=== PATIENT | male | born 1975 | race Caucasian/White ===

== ENCOUNTER → 2018-06-05 17:25 | Outpatient (CLI) | payer OTHER, MEDICAID, SELFPAY ==
--- NOTE | 2018-06-05 17:28 | DI.RAD.S_ITS ---
PROCEDURE: XR SHOULDER LT MIN 2V INDICATIONS: left shoulder pain TECHNIQUE: 3 views of the shoulder were acquired. COMPARISON: None. FINDINGS: Bones: No fractures or dislocations. No suspicious bony lesions. Visualized ribs appear intact. Soft tissues: No suspicious soft tissue calcifications. IMPRESSION: Left shoulder without acute radiographic abnormalities. Dictated by: Flavio Cochran M.D. on 06/05/2018 at 17:52 Approved by: Flavio Cochran M.D. on 06/05/2018 at 17:52
== END ==
PROVIDERS: Visit Provider Physician Assistant
DX: M25.512 Pain in left shoulder (principal)
CPT/HCPCS: 73030

== ENCOUNTER 2018-08-23 18:41 | Observation (INO) | payer OTHER, MEDICAID, SELFPAY ==
[2018-08-23] VITALS (11 sets, daily range): BP systolic 113–157; BP diastolic 68–96; PULSE 72–95; RESP 13–95; TEMP 36.1–36.9; O2SAT 95–99; BMI 23.6
--- NOTE | 2018-08-23 18:48 | DI.RAD.S_ITS ---
PROCEDURE: XR FINGER LT MIN 2V INDICATIONS: chopped off thumb TECHNIQUE: AP hand, 2 views of the left first finger(s) acquired. COMPARISON: None. FINDINGS: Bones: Distal aspect of the first distal phalange as indicated. Soft tissues: No suspicious soft tissue calcifications. No radiodense foreign bodies. IMPRESSION: Partial amputation of the first distal phalange. Dictated by: Catrachita Benjamin MD, PhD on 08/23/2018 at 19:22 Approved by: Catrachita Benjamin MD, PhD on 08/23/2018 at 19:22
--- NOTE | 2018-08-23 18:53 | ED.UPPEXIN ---
HPI - Extremity Injury (Upper) General Chief Complaint: Extremity Injury, Lower Stated Complaint: THUMB INJURY IN A LOCK SPLITTER Time Seen by Provider: 08/23/18 18:46 Source: patient Mode of arrival: ambulatory Limitations: no limitations History of Present Illness HPI narrative: Patient is a 42-year-old male presents with amputation of left thumb. It was cut off with a hydraulic log splitter 2-1/2 hours prior to arrival. No longer bleeding. He is kept on ice. It appears to be cut off just above the IP joint. He is left-hand dominant. There is a right-handed lever he was using his left hand to just a piece of wood when it got caught. He is unsure when his last tetanus MD complaint: injury to: left Other injuries: none Related Data Previous Rx's Medication Instructions Recorded methocarbamol 500 mg tablet 500 mg PO QID PRN #10 tab 06/06/18 cephalexin [Keflex] 500 mg PO QID #28 cap 08/23/18 hydrocodone-acetaminophen [[place]] 1 tab PO Q4HR PRN #10 tab 08/23/18 Allergies Allergy/AdvReac Type Severity Reaction Status Date / Time No Known Drug Allergies Allergy Unverified 06/05/18 15:53 Review of Systems Review of Systems GENERAL: Denies chills,fever HEENT: Denies throat pain RESPIRATORY: Denies dyspnea, cough, wheezing CARDIOVASCULAR: Denies chest pain, palpitations GASTROINTESTINAL: Denies nausea, vomiting MUSCULOSKELETAL: See HPI SKIN: No rash, no laceration, no pruritus NEUROLOGIC: Denies weakness, dizziness, headache, numbness 8 point review of systems is negative except for those stated above and HPI PFSH Social History Smoking Status: Current every day smoker Social History household members: none Smoking Status: Current every day smoker alcohol intake: current Exam Initial Vital Signs Initial Vital Signs: Vital Signs Temperature 98.5 F 08/23/18 18:54 Pulse Rate 89 08/23/18 18:54 Respiratory Rate 20 08/23/18 18:54 Blood Pressure 157/96 H 08/23/18 18:54 Pulse Oximetry 98 08/23/18 18:54 GENERAL: Well-appearing, well-nourished and in no acute distress. CARDIOVASCULAR: peripheral pulses in tact, cap refill <2 sec RESPIRATORY: No respiratory distress, speaks in full sentences without difficulty [ABDOMEN: Soft, nontender, no guarding or rebound] EXTREMITIES: Normal range of motion, no clubbing or edema. Neurovascularly intact NEUROLOGICAL: Cranial nerves II through XII grossly intact. Normal gait and speech. SKIN: Warm, dry, no petechiae, no rashes or lesions. Course Orders Ordered: ED Orders 08/23/18 18:48 XR finger LT min 2V Stat Hydrocodone Bitart/Acetaminophen ([place] 5/325) 1 tab PO Q4HR PRN PRN Reason: Pain, Mild (1-3) Last Admin: 08/23/18 23:36 Dose: 1 tab Hydrocodone Bitart/Acetaminophen ([place] 5/325) 2 tab PO Q4HR PRN PRN Reason: Pain, Moderate (4-6) Docusate Sodium (Colace) 100 mg PO BID [facility] Last Admin: 08/23/18 23:58 Dose: Not Given Lactated Ringer's (Lactated Ringers) 1,000 mls @ 125 mls/hr IV CONT [facility] Last Admin: 08/23/18 23:32 Dose: 125 mls/hr Cefazolin Sodium/Dextrose (Ancef) 1 gm in 50 mls @ 200 mls/hr IV Q8HR [facility] Stop: 08/24/18 14:14 Lorazepam (Ativan) 0.5 mg PO Q6HR PRN PRN Reason: Anxiety Metoclopramide HCl (Reglan) 10 mg IV Q6HR PRN PRN Reason: Nausea And Vomiting Naloxone HCl (Narcan) 0.2 mg IV Q2MIN PRN PRN Reason: Opiate Reversal Nicotine (Nicoderm) 14 mg TOP DAILY [facility] Last Admin: 08/24/18 00:19 Dose: 14 mg Ondansetron HCl (Zofran) 4 mg IV Q4HR PRN PRN Reason: Nausea And Vomiting Discontinued Medications Bupivacaine HCl (Sensorcaine 0.5% (Pf)) 30 ml INJ NOW ONE Stop: 08/23/18 21:09 Last Admin: 08/23/18 21:13 Dose: 7 ml Cefazolin Sodium (Ancef Vial) 1 gm IV NOW ONE Stop: 08/23/18 18:49 Last Admin: 08/23/18 19:28 Dose: Not Given Sodium Chloride 1,000 ml/ (Gentamicin Sulfate 80 mg) 0 ml IRR NOW ONE Stop: 08/23/18 21:09 Last Admin: 08/23/18 21:11 Dose: 2,004 ml Diphtheria/Tetanus/Acell Pertussis (Adacel) 0.5 ml IM .ONCE ONE Stop: 08/23/18 19:29 Last Admin: 08/23/18 19:29 Dose: 0.5 ml Fentanyl (Sublimaze) 50 mcg IV Q5MIN PRN PRN Reason: Pain, Moderate (4-6) Hydromorphone HCl (Dilaudid) 1 mg IV NOW ONE Stop: 08/23/18 18:49 Last Admin: 08/23/18 18:56 Dose: 1 mg Hydromorphone HCl (Dilaudid) 0.25 mg IV Q5MIN PRN PRN Reason: Pain, Mild (1-3) Cefazolin Sodium/Dextrose (Ancef) 1 gm in 50 mls @ 200 mls/hr IV NOW ONE Stop: 08/23/18 19:40 Last Infusion: 08/23/18 19:53 Dose: 0 mls/hr Admin: 08/23/18 19:27 Dose: 200 mls/hr Lactated Ringer's (Lactated Ringers) 1,000 mls @ 42 mls/hr IV CONT [facility] Last Infusion: 08/23/18 22:14 Dose: 42 mls/hr Admin: 08/23/18 20:45 Dose: 42 mls/hr Cefazolin Sodium/Dextrose (Ancef) 2 gm in 100 mls @ 200 mls/hr IV NOW ONE Stop: 08/23/18 21:37 Last Infusion: 08/23/18 20:50 Dose: 0 mls/hr Admin: 08/23/18 20:45 Dose: 200 mls/hr Lidocaine HCl (Xylocaine 1%) 30 ml INJ NOW ONE Stop: 08/23/18 21:09 Last Admin: 08/23/18 21:13 Dose: 7 ml Ondansetron HCl (Zofran) 4 mg IV NOW PRN PRN Reason: Nausea And Vomiting Oxycodone/Acetaminophen (Percocet 5/325) 1 tab PO Q30MIN PRN PRN Reason: Mild or moderate pain Last Admin: 08/23/18 22:09 Dose: 1 tab Tetanus/Diphtheria Toxoids (Td) 0.5 ml IM .ONCE ONE Stop: 08/23/18 19:27 Last Admin: 08/23/18 19:28 Dose: Not Given Vital Signs - 8 hr 08/23/18 19:30 08/23/18 21:40 08/23/18 21:48 Temperature 97.0 F L Pulse Rate 82 79 81 Respiratory Rate 18 14 14 Blood Pressure 113/68 119/83 Blood Pressure [Right Arm] 142/95 H Pulse Oximetry 98 96 97 08/23/18 21:51 08/23/18 21:55 08/23/18 22:05 Temperature 97.9 F 98.0 F Pulse Rate 78 72 75 Respiratory Rate 95 H 15 13 Blood Pressure 130/86 129/88 134/89 Blood Pressure [Right Arm] Pulse Oximetry 97 96 98 08/23/18 22:25 08/23/18 23:25 08/24/18 00:25 Temperature 98.1 F 98.3 F 98.4 F Pulse Rate 82 95 H 76 Respiratory Rate 18 17 16 Blood Pressure 115/78 119/75 118/67 Blood Pressure [Right Arm] Pulse Oximetry 95 97 95 MDM - Extremity Injury (Upper) Imaging Data left thumb: Radiologist's impression: PROCEDURE: XR FINGER LT MIN 2V INDICATIONS: chopped off thumb TECHNIQUE: AP hand, 2 views of the left first finger(s) acquired. COMPARISON: None. FINDINGS: Bones: Distal aspect of the first distal phalange as indicated. Soft tissues: No suspicious soft tissue calcifications. No radiodense foreign bodies. IMPRESSION: Partial amputation of the first distal phalange. Dictated by: Catrachita Benjamin MD, PhD on 08/23/2018 at 19:22 Approved by: Catrachita Benjamin MD, PhD on 08/23/2018 at 19:22 [facility] Narrative Medical decision making narrative: 6:50pm Dr. Mac orthopedics [facility] that [facility] may be something that is reattached recommending calling [facility] where they have hand surgeon and team on standby. 7:22pm Dr. Boyle hand surgeon at [facility] so was sent images by e-mail with patient permission. At this time are reattachment he is not an option. He recommends closing within [address] you updated on [facility] recommendations of clothing. He is in the ED to see and evaluate patient patient will be going to OR for closure. 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
[2018-08-23] MEDS: HYDROMORPHONE 1 MG INJ IV (18:56)
--- NOTE | 2018-08-23 18:58 | ED_ITS ---
HPI - Extremity Injury (Upper) General Chief Complaint: Extremity Injury, Lower Stated Complaint: THUMB INJURY IN A LOCK SPLITTER Time Seen by Provider: 08/23/18 18:46 Source: patient Mode of arrival: ambulatory Limitations: no limitations History of Present Illness HPI narrative: Patient is a 42-year-old male presents with amputation of left thumb. It was cut off with a hydraulic log splitter 2-1/2 hours prior to arrival. No longer bleeding. He is kept on ice. It appears to be cut off just above the IP joint. He is left-hand dominant. There is a right-handed lever he was using his left hand to just a piece of wood when it got caught. He is unsure when his last tetanus MD complaint: injury to: left Other injuries: none Related Data Previous Rx's Medication Instructions Recorded methocarbamol 500 mg tablet 500 mg PO QID PRN #10 tab 06/06/18 cephalexin [Keflex] 500 mg PO QID #28 cap 08/23/18 hydrocodone-acetaminophen [[place]] 1 tab PO Q4HR PRN #10 tab 08/23/18 Allergies Allergy/AdvReac Type Severity Reaction Status Date / Time No Known Drug Allergies Allergy Unverified 06/05/18 15:53 Review of Systems Review of Systems GENERAL: Denies chills,fever HEENT: Denies throat pain RESPIRATORY: Denies dyspnea, cough, wheezing CARDIOVASCULAR: Denies chest pain, palpitations GASTROINTESTINAL: Denies nausea, vomiting MUSCULOSKELETAL: See HPI SKIN: No rash, no laceration, no pruritus NEUROLOGIC: Denies weakness, dizziness, headache, numbness 8 point review of systems is negative except for those stated above and HPI PFSH Social History Smoking Status: Current every day smoker Social History household members: none Smoking Status: Current every day smoker alcohol intake: current Exam Initial Vital Signs Initial Vital Signs: Vital Signs Temperature 98.5 F 08/23/18 18:54 Pulse Rate 89 08/23/18 18:54 Respiratory Rate 20 08/23/18 18:54 Blood Pressure 157/96 H 08/23/18 18:54 Pulse Oximetry 98 08/23/18 18:54 GENERAL: Well-appearing, well-nourished and in no acute distress. CARDIOVASCULAR: peripheral pulses in tact, cap refill <2 sec RESPIRATORY: No respiratory distress, speaks in full sentences without difficulty [ABDOMEN: Soft, nontender, no guarding or rebound] EXTREMITIES: Normal range of motion, no clubbing or edema. Neurovascularly intact NEUROLOGICAL: Cranial nerves II through XII grossly intact. Normal gait and speech. SKIN: Warm, dry, no petechiae, no rashes or lesions. Course Orders Ordered: ED Orders 08/23/18 18:48 XR finger LT min 2V Stat Hydrocodone Bitart/Acetaminophen ([place] 5/325) 1 tab PO Q4HR PRN PRN Reason: Pain, Mild (1-3) Last Admin: 08/23/18 23:36 Dose: 1 tab Hydrocodone Bitart/Acetaminophen ([place] 5/325) 2 tab PO Q4HR PRN PRN Reason: Pain, Moderate (4-6) Docusate Sodium (Colace) 100 mg PO BID [facility] Last Admin: 08/23/18 23:58 Dose: Not Given Lactated Ringer's (Lactated Ringers) 1,000 mls @ 125 mls/hr IV CONT [facility] Last Admin: 08/23/18 23:32 Dose: 125 mls/hr Cefazolin Sodium/Dextrose (Ancef) 1 gm in 50 mls @ 200 mls/hr IV Q8HR [facility] Stop: 08/24/18 14:14 Lorazepam (Ativan) 0.5 mg PO Q6HR PRN PRN Reason: Anxiety Metoclopramide HCl (Reglan) 10 mg IV Q6HR PRN PRN Reason: Nausea And Vomiting Naloxone HCl (Narcan) 0.2 mg IV Q2MIN PRN PRN Reason: Opiate Reversal Nicotine (Nicoderm) 14 mg TOP DAILY [facility] Last Admin: 08/24/18 00:19 Dose: 14 mg Ondansetron HCl (Zofran) 4 mg IV Q4HR PRN PRN Reason: Nausea And Vomiting Discontinued Medications Bupivacaine HCl (Sensorcaine 0.5% (Pf)) 30 ml INJ NOW ONE Stop: 08/23/18 21:09 Last Admin: 08/23/18 21:13 Dose: 7 ml Cefazolin Sodium (Ancef Vial) 1 gm IV NOW ONE Stop: 08/23/18 18:49 Last Admin: 08/23/18 19:28 Dose: Not Given Sodium Chloride 1,000 ml/ (Gentamicin Sulfate 80 mg) 0 ml IRR NOW ONE Stop: 08/23/18 21:09 Last Admin: 08/23/18 21:11 Dose: 2,004 ml Diphtheria/Tetanus/Acell Pertussis (Adacel) 0.5 ml IM .ONCE ONE Stop: 08/23/18 19:29 Last Admin: 08/23/18 19:29 Dose: 0.5 ml Fentanyl (Sublimaze) 50 mcg IV Q5MIN PRN PRN Reason: Pain, Moderate (4-6) Hydromorphone HCl (Dilaudid) 1 mg IV NOW ONE Stop: 08/23/18 18:49 Last Admin: 08/23/18 18:56 Dose: 1 mg Hydromorphone HCl (Dilaudid) 0.25 mg IV Q5MIN PRN PRN Reason: Pain, Mild (1-3) Cefazolin Sodium/Dextrose (Ancef) 1 gm in 50 mls @ 200 mls/hr IV NOW ONE Stop: 08/23/18 19:40 Last Infusion: 08/23/18 19:53 Dose: 0 mls/hr Admin: 08/23/18 19:27 Dose: 200 mls/hr Lactated Ringer's (Lactated Ringers) 1,000 mls @ 42 mls/hr IV CONT [facility] Last Infusion: 08/23/18 22:14 Dose: 42 mls/hr Admin: 08/23/18 20:45 Dose: 42 mls/hr Cefazolin Sodium/Dextrose (Ancef) 2 gm in 100 mls @ 200 mls/hr IV NOW ONE Stop: 08/23/18 21:37 Last Infusion: 08/23/18 20:50 Dose: 0 mls/hr Admin: 08/23/18 20:45 Dose: 200 mls/hr Lidocaine HCl (Xylocaine 1%) 30 ml INJ NOW ONE Stop: 08/23/18 21:09 Last Admin: 08/23/18 21:13 Dose: 7 ml Ondansetron HCl (Zofran) 4 mg IV NOW PRN PRN Reason: Nausea And Vomiting Oxycodone/Acetaminophen (Percocet 5/325) 1 tab PO Q30MIN PRN PRN Reason: Mild or moderate pain Last Admin: 08/23/18 22:09 Dose: 1 tab Tetanus/Diphtheria Toxoids (Td) 0.5 ml IM .ONCE ONE Stop: 08/23/18 19:27 Last Admin: 08/23/18 19:28 Dose: Not Given Vital Signs - 8 hr 08/23/18 19:30 08/23/18 21:40 08/23/18 21:48 Temperature 97.0 F L Pulse Rate 82 79 81 Respiratory Rate 18 14 14 Blood Pressure 113/68 119/83 Blood Pressure [Right Arm] 142/95 H Pulse Oximetry 98 96 97 08/23/18 21:51 08/23/18 21:55 08/23/18 22:05 Temperature 97.9 F 98.0 F Pulse Rate 78 72 75 Respiratory Rate 95 H 15 13 Blood Pressure 130/86 129/88 134/89 Blood Pressure [Right Arm] Pulse Oximetry 97 96 98 08/23/18 22:25 08/23/18 23:25 08/24/18 00:25 Temperature 98.1 F 98.3 F 98.4 F Pulse Rate 82 95 H 76 Respiratory Rate 18 17 16 Blood Pressure 115/78 119/75 118/67 Blood Pressure [Right Arm] Pulse Oximetry 95 97 95 MDM - Extremity Injury (Upper) Imaging Data left thumb: Radiologist's impression: PROCEDURE: XR FINGER LT MIN 2V INDICATIONS: chopped off thumb TECHNIQUE: AP hand, 2 views of the left first finger(s) acquired. COMPARISON: None. FINDINGS: Bones: Distal aspect of the first distal phalange as indicated. Soft tissues: No suspicious soft tissue calcifications. No radiodense foreign bodies. IMPRESSION: Partial amputation of the first distal phalange. Dictated by: Catrachita Benjamin MD, PhD on 08/23/2018 at 19:22 Approved by: Catrachita Benjamin MD, PhD on 08/23/2018 at 19:22 [facility] Narrative Medical decision making narrative: 6:50pm [facility] be something that is [facility] recommending calling [facility] where they have hand surgeon and team on standby. 7:22pm Dr. Boyle hand surgeon at [facility] so was sent images by e-mail with patient permission. At this time are reattachment he is not an option. He recommends closing within [address] you updated on [facility] recommendations of clothing. He is in the ED to see and evaluate patient patient will be going to OR for closure. 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
--- NOTE | 2018-08-23 19:12 | PC.NURSE ---
pt reports, from [facility], splitting wood with log splitter, occured 415pm, obtained left thumb amputation. denies other injuries.
[2018-08-23] MEDS: CEFAZOLIN 1 GM/50 ML FROZ.PIGGY IV (19:27)
[2018-08-23] MEDS: TET,DIPH,PERTUSS(ACELL),VAC/PF 0.5 ML SYRINGE IM (19:29)
--- NOTE | 2018-08-23 19:49 | PM.CN ---
History of Present Illness Date Patient Seen: 08/23/18 Time Patient Seen: 19:49 Chief complaint: THUMB INJURY IN A LOCK SPLITTER Reason for consult: L thumb partial amputation [facility] Social History Smoking Status: Current every day smoker Social History Smoking Status: Current every day smoker Meds Home Medications Medication Instructions Recorded Confirmed Type methocarbamol 500 mg tablet 500 mg PO QID PRN #10 tab 06/06/18 Rx Allergies Allergy/AdvReac Type Severity Reaction Status Date / Time No Known Drug Allergies Allergy Unverified 06/05/18 15:53 Exam Vital Signs (past 8 hours): - 08/23/18 18:54 08/23/18 19:09 08/23/18 19:15 Temperature 98.5 F Pulse Rate 89 85 Pulse Rate [Left Radial] 87 Respiratory Rate 20 16 Blood Pressure 157/96 H Blood Pressure [Right Arm] 145/86 H Pulse Oximetry 98 99 08/23/18 19:30 Temperature Pulse Rate 82 Pulse Rate [Left Radial] Respiratory Rate 18 Blood Pressure Blood Pressure [Right Arm] 142/95 H Pulse Oximetry 98 Oxygen Delivery Method Room Air
--- NOTE | 2018-08-23 20:11 | P.HP_ITS ---
History of Present Illness Chief complaint: THUMB INJURY IN A LOCK SPLITTER Patient History Social History Smoking Status: Current every day smoker Family & Social History Safety & Behavioral: Feels Safe in Current Yes Environment Tobacco & Substance use: Smoking Status Current every day smoker alcohol intake frequency 0-2 drinks per day Substance Use Type does not use Meds Home Medications Medication Instructions Recorded Confirmed Type methocarbamol 500 mg tablet 500 mg PO QID PRN #10 tab 06/06/18 Rx cephalexin [Keflex] 500 mg PO QID #28 cap 08/23/18 Rx hydrocodone-acetaminophen [[place]] 1 tab PO Q4HR PRN #10 tab 08/23/18 Rx Allergies Allergy/AdvReac Type Severity Reaction Status Date / Time No Known Drug Allergies Allergy Unverified 06/05/18 15:53 Review of Systems Constitutional Constitutional: Denies chills and Denies fever(s) Cardiovascular Cardiovascular: Denies chest pain Respiratory Respiratory: Denies cough and Denies wheezing Gastrointestinal Gastrointestinal: Denies abdominal pain Musculoskeletal Musculoskeletal: Denies numbness Neurologic Neurologic: Denies numbness Hematologic/Lymphatic Hematologic/Lymphatic: Denies easy bleeding Allergic/Immunologic Allergic/Immunologic: Denies wheezing Exam Vital Signs (past 8 hours): - 08/23/18 18:54 08/23/18 19:09 08/23/18 19:15 Temperature 98.5 F Pulse Rate 89 85 Pulse Rate [Left Radial] 87 Respiratory Rate 20 16 Blood Pressure 157/96 H Blood Pressure [Right Arm] 145/86 H Pulse Oximetry 98 99 08/23/18 19:30 Temperature Pulse Rate 82 Pulse Rate [Left Radial] Respiratory Rate 18 Blood Pressure Blood Pressure [Right Arm] 142/95 H Pulse Oximetry 98 Oxygen Delivery Method Room Air Const Orientation: alert and oriented x3 Resp Auscultation: clear to auscultation bilaterally Cardio Rate: regular rate Rhythm: regular rhythm Extrem Other: Left thumb -transverse transection midway through the distal phalanx. Nail has been removed. Exposed bone with no coverage. Moderate active bleeding coming from the wound when the dressing was taken down. Intact sensation up to the level of the transection. Objective Imaging Left thumb: My impression: Transverse amputation through the middle of the distal phalanx. Assessment & Plan Assessment & Plan narrative: Left thumb partial amputation with a contaminated open wound and transverse fracture of the distal phalanx Plan is to taken to the operating room tonight emergently to wash out the wound as well as shorten the amputation and get good soft tissue coverage of the exposed bone. I explained that we should not have to shorten the bone too much and hopefully should still leave him a small amount of the distal phalanx but could possibly have to go all the way to the IP joint for coverage. Risks and benefits of surgery were discussed including not limited to medical risk with heart attack, stroke, , DVT, PE, infection, bleeding, scarring, hypersensitivity, loss of function, need for further surgery. All questions were answered.
--- NOTE | 2018-08-23 20:15 | PM.OP.1 ---
Operative Date/Time/Diagnoses Date of procedure: 08/23/18 Time of procedure: 21:36 Pre-op diagnosis: Traumatic partial amputation of the left thumb Open fracture of the left thumb distal phalanx Post-op diagnosis: same Procedure & Clinicians Procedure: Irrigation debridement of open distal phalanx fracture of the left thumb Revision and shortening of amputation of the distal phalanx of the left thumb Same procedure as scheduled: Yes Indications: 42-year-old male with an open contaminated amputation of the left thumb. It was felt that he would benefit from emergent washout and closure, with required shortening. Risks and benefits of surgery were discussed and appropriate consents were obtained. Surgeon: Lake Weber Click Yes if Unassisted: Yes Anesthesia Type: Sedation and Local Operative Notes Findings: None Closure Type: primary Specimen(s): none sent Estimated Blood Loss (mL): 10 Procedure in detail: Patient was brought to the operating room and given sedation. Time-out was performed. Preoperative antibiotics were given. The left thumb was prepped and a digital nerve block was performed with a combination of 1% lidocaine and 0.5% Marcaine. Once the digital block had adequate relief, the hand was prepped and draped in the standard sterile fashion. A digital artery was still pumping and this was grasped and retracted with a pickup and cauterized. The wound was copiously irrigated. the wound was examined. The nail had been completely removed and it appeared that the germinal matrix had also come off. A curette was used to debride the end of the bone as well as the surrounding soft tissue. There was not enough coverage with the soft tissue and we undermined around the bone to expose it. I used a rongeur to trim back the remaining aspect of the distal phalanx approximately another 3 mm. Once there was adequate soft tissue coverage, the wound was again irrigated. We reapproximated the soft tissue with Vicryl and then closed the skin with nylon suture. There is good capillary refill without any excess tension. Sterile dressing was placed. He was then brought to recovery with no complications. Complications: none Condition: stable Disposition: PACU Plan for aftercare: Overnight admission for IV antibiotics and discharge home tomorrow.
[2018-08-23] MEDS: CEFAZOLIN 2 GM/100 ML FROZ.PIGGY IV (20:45)
[2018-08-23] MEDS: LACTATED RINGERS 1,000 ML 42 ML IV (20:45)
--- NOTE | 2018-08-23 21:05 | SUR.OPER ---
Supine on padded OR bed, head on pillow, right arm secured on padded arm board at <90 degrees abduction, left arm on hand table, legs uncrossed, safety belt at thigh, tape over blanket over lower legs.
[2018-08-23] MEDS: SODIUM CHLORIDE 0.9% 1,000 ML, GENTAMICIN 80 MG IRR (21:11)
[2018-08-23] MEDS: LIDOCAINE 1% 30 ML INJ INJ (21:13)
[2018-08-23] MEDS: BUPIVACAINE 0.5% (PF) VIAL 30 ML INJ (21:13)
[2018-08-23] MEDS: OXYCODONE/ACETAMINOPHEN 5/325 TABLET 1 TAB PO (22:09)
--- NOTE | 2018-08-23 22:34 | SUR.PHASEI ---
Post op transfer note: Patient stable for transfer to IP room 225. Verbal bedside report given to Dina SHULTZ. VSS, O2 sats 97% RA. Family at bedside. Dressing CDI. pain level 4/10
[2018-08-23] MEDS: LACTATED RINGERS 1,000 ML 125 ML IV (23:32)
[2018-08-23] MEDS: HYDROCODONE/ACET 5/325 TABLET 1 TAB PO (23:36)
--- NOTE | 2018-08-23 23:44 | PC.NURSE ---
2224- Pt arrived to room 225 from PACU via bed. A/O x4, 99%RA, LS clear denies SOB. BT+ denies nausea. Left tip thumb on ice, on counter, pt requests to take home. Left thumb xeroform 4x4 coband, CDI. SBA to BRP to void. Conscious sedation used in OR. Right elbow LR @ 125. Left radial pp+, CMS +. Provided with snacks and water. Call light in reach.
[2018-08-24] MEDS: NICOTINE 14 PATCH 14 MG TOP (00:19)
[2018-08-24 00:25] VITALS: BP 118/67; PULSE 76; RESP 16; TEMP 36.9; O2SAT 95
[2018-08-24] MEDS: HYDROCODONE/ACET 5/325 TABLET 2 TAB PO ×2 (03:59→07:38)
[2018-08-24 04:44] VITALS: BP 130/63; PULSE 68; RESP 16; TEMP 37.3; O2SAT 95
[2018-08-24] MEDS: CEFAZOLIN 1 GM/50 ML FROZ.PIGGY IV (05:33)
[2018-08-24 08:00] VITALS: BP 139/77; PULSE 66; RESP 15; TEMP 36.6; O2SAT 97
--- NOTE | 2018-08-24 08:08 | PM.PNPO.1 ---
Subjective Date Patient Seen: 08/24/18 Time Patient Seen: 08:08 Interval history: He is doing well. He has been having pain radiating from the thumb to the distal radial forearm but better with pain medications this morning. Exam Vital Signs (past 8 hours): - 08/24/18 00:25 08/24/18 04:44 Temperature 98.4 F 99.2 F Pulse Rate 76 68 Respiratory Rate 16 16 Blood Pressure 118/67 130/63 Pulse Oximetry 95 95 Oxygen Delivery Method Room Air Const Orientation: alert and oriented x3 Extrem Other: Left thumb -minimal dry drainage on dressing. No erythema or induration tracking up the arm Assessment & Plan Post-op Postoperative Procedures Operation Date: 08/23/18 20:20 Actual Procedures Side Surgeon p Revision and closure of left thumb amputation Lake Weber MD He is doing well. Stable for discharge home this morning.
[2018-08-24] MEDS: LORazepam 0.5 MG TABLET PO (09:11)
--- NOTE | 2018-08-24 10:17 | PC.NURSE ---
Day Shift- Pt A&OX4, able to make needs known. C/O 09/17 pain aching, throbbing, intermittent sharp to left thumb, radiating to left wrist and forearm area. PRN [place] 2 tabs given at 0740. With satisfactory effect. Pt does fairly well keeping left hand elevated on pillows above heart level. Left thumb dressing intact with small amount of sang drainage shadowing to distal end of dressing at tip of thumb, coban wrap CDI. Radial pulse palpable, denies any numbness or tingling. Spoke with Dr. Weber on unit. Okay for pt to not have Cefazolin IV dose prior to discharge. Pt being discharged on Keflex po. Pt's girlfriend Cheryl at bedside later in morning, Has prescription for Keflex and [place], will have filled at pharmacy in [place] around 1100 when open. Throughout morning pt had episodes of moaning outloud prior to and shortly after prn pain med given. Pt also able to distract himself with making phone calls and having the TV on. Pt was anxious regarding pain management. PRN Ativan po given at 0910 for anxiety and per pt request. Pt wanted to be discharged as soon as possible. Pt given Arm sling to help elevated left thumb above heart level. Discharge summary reviewed with pt and his girlfriend, all questions answered, aware to keep dressing in place unitl F/U appointment. Pt will call on Saturday to make that appointment. Pt left unit with all belongings via wheelchair with [facility] OPERATOR at 0955 in no distress. Pt's girlfriend present to drive pt back to [facility].
== END 2018-08-24 09:55 | disposition home or self-care (01) ==
LOC: ED 20:33 → AC 21:05
PROVIDERS: Admitting Provider Orthopaedic Surgery; Emergency Provider Emergency Medicine; Visit Provider Orthopaedic Surgery
PROC: (CPT 26951; principal; 2018-08-23 20:20)
DX: S68.522A Partial traumatic transphalangeal amputation of left thumb, initial encounter (principal); W31.2XXA Contact with powered woodworking and forming machines, initial encounter; F17.210 Nicotine dependence, cigarettes, uncomplicated; Z23 Encounter for immunization
CPT/HCPCS: 26951; 36591; 73140; 90471; 96361; 96365; 96366; 96375; 99283; 99284; G0378; 90715; J0690; J1170; J2250; J2704; J3010

== ENCOUNTER 2018-08-26 16:14 | Emergency (ER) | payer OTHER, MEDICAID, SELFPAY ==
[2018-08-23 21:07] VITALS: BMI 23.6
[2018-08-26 16:24] VITALS: BP 151/87; PULSE 102; RESP 19; TEMP 37.1; O2SAT 99; BMI 23.5
--- NOTE | 2018-08-26 16:39 | ED.UPPEXIN ---
HPI - Extremity Injury (Upper) <Juany Manning PA-C - Last Filed: 08/26/18 20:12> General Chief Complaint: Extremity Injury, Upper Stated Complaint: PAIN LEFT HAND Time Seen by Provider: 08/26/18 16:17 Source: patient Mode of arrival: ambulatory Limitations: no limitations History of Present Illness HPI narrative: This 42-year-old male had a traumatic partial amputation of the left thumb 2 days ago which was closed in the OR here. He states that he has had some pain but doing okay, taking ibuprofen and [place] that he was prescribed every 4-6 hours. He was given 10 when discharged on Saturday and ran out of those this morning. He called the surgeon's office but does not have follow-up scheduled until . He has having increasing throbbing and pressure pain in the thumb, and does not know whether this is because he is out of pain medication or because there is some other problem. He states at times the pain she was into the radial side of his wrist. He denies any drainage from the wound. He denies any fever, states he is otherwise feeling fine Related Data Previous Rx's Medication Instructions Recorded cephalexin [Keflex] 500 mg PO QID #28 cap 08/23/18 hydrocodone-acetaminophen [[place]] 1 tab PO Q4HR PRN #10 tab 08/23/18 hydrocodone-acetaminophen [[place]] 1 tab PO Q4-6H PRN #14 tab 08/26/18 Allergies Allergy/AdvReac Type Severity Reaction Status Date / Time No Known Drug Allergies Allergy Verified 08/26/18 16:41 Review of Systems <Juany Manning PA-C - Last Filed: 08/26/18 20:12> Review of Systems ROS Unobtainable: All systems reviewed & are unremarkable except as noted in HPI and below PFSH <Juany Manning PA-C - Last Filed: 08/26/18 20:12> Surgical History (Updated 08/26/18 @ 17:21 by Juany Manning PA-C) Amputation of thumb, left (Acute) Social History household members: none Smoking Status: Current every day smoker alcohol intake: current Social History household members: none Smoking Status: Current every day smoker alcohol intake: current Exam <Juany Manning PA-C - Last Filed: 08/26/18 20:12> Narrative Exam Narrative: GENERAL APPEARANCE: Patient sitting comfortably, in no distress. LUNGS: Clear to auscultation bilaterally. HEART: Rate and rhythm regular without murmur, normal S1 and S2, no S3 or S4. DERMATOLOGIC: Left thumb stump mildly erythematous, uniform, not extending proximal to the MCP joint, no surgical wound drainage MUSCULOSKELETAL: Left thumb no effusion the MCP joint, full aROM at MCP, moderate tenderness. No tenderness over the wrist where there is also full range of motion NEUROVASCULAR: Remainder of let some and left hand fingers sensation is grossly intact, warm and pink Initial Vital Signs Initial Vital Signs: Vital Signs Temperature 98.7 F 08/26/18 16:24 Pulse Rate 102 H 08/26/18 16:24 Respiratory Rate 08/26/18 16:24 Blood Pressure 151/87 H 08/26/18 16:24 Pulse Oximetry 99 08/26/18 16:24 <Mike Viera DO - Last Filed: 08/27/18 08:39> Initial Vital Signs Initial Vital Signs: Vital Signs Temperature 98.7 F 08/26/18 16:24 Pulse Rate 102 H 08/26/18 16:24 Respiratory Rate 08/26/18 16:24 Blood Pressure 151/87 H 08/26/18 16:24 Pulse Oximetry 99 08/26/18 16:24 Course <Juany Manning PA-C - Last Filed: 08/26/18 20:12> Additional Information: The patient reports improvement in pain after dressing removed, edema somewhat improved as well. He was given a single dose of [place]. No evidence of infection at this point. A looser, bulky dressing was placed, and a prescription for [place] to last until his appointment was given. Advised to call surgeon's office sooner if pain acutely worsens again or new problems such as signs of infection, which we reviewed. He is agreeable Orders Ordered: Discontinued Medications Hydrocodone Bitart/Acetaminophen ([place] 5/325) 1 tab PO NOW ONE Stop: 08/26/18 17:15 Last Admin: 08/26/18 17:23 Dose: 1 tab Vital Signs - 8 hr 06/18/19 16:24 08/26/18 18:13 Temperature 98.7 F Pulse Rate 102 H 75 Respiratory Rate 19 16 Blood Pressure 151/87 H Blood Pressure [Right Arm] 136/79 Pulse Oximetry 99 94 <Mike Viera DO - Last Filed: 08/27/18 08:39> Orders Ordered: Discontinued Medications Hydrocodone Bitart/Acetaminophen ([place] 5/325) 1 tab PO NOW ONE Stop: 08/26/18 17:15 Last Admin: 08/26/18 17:23 Dose: 1 tab Vital Signs - 8 hr 08/26/18 16:24 08/26/18 18:13 Temperature 98.7 F Pulse Rate 102 H 75 Respiratory Rate 19 16 Blood Pressure 151/87 H Blood Pressure [Right Arm] 136/79 Pulse Oximetry 99 94 Discharge Plan Departure Patient Disposition: Home Clinical Impression: 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 We have placed a slightly looser dressing today. Since you are feeling better, you can continue to monitor at home as there is no sign of postoperative infection today. If this starts to feel worse again or other new symptoms, i.e. signs of infection, please call the surgeon's office right away to request to be seen, and of course you may return to the ED as needed. Prescriptions: New hydrocodone-acetaminophen [[place]om] 5-325 mg tablet 1 tab PO Q4-6H PRN (Reason: acute postoperative pain/amputation) Qty: 14 RF: 0 No Action hydrocodone-acetaminophen [Waskom] 5-325 mg tablet 1 tab PO Q4HR PRN (Reason: pain) Qty: 10 RF: 0 cephalexin [Keflex] 500 mg capsule 500 mg PO QID Qty: 28 RF: 0 Referrals: Lake Weber MD [Physician] - <Mike Viera DO - Last Filed: 08/27/18 08:39> Cosign ED Attending Cosignature Attestation: I was immediately available in the department for consultation. Documentation has been reviewed. I agree with assessment and plan.
--- NOTE | 2018-08-26 16:46 | ED_ITS ---
HPI - Extremity Injury (Upper) <Juany Manning PA-C - Last Filed: 08/26/18 20:12> General Chief Complaint: Extremity Injury, Upper Stated Complaint: PAIN LEFT HAND Time Seen by Provider: 08/26/18 16:17 Source: patient Mode of arrival: ambulatory Limitations: no limitations History of Present Illness HPI narrative: This 42-year-old male had a traumatic partial amputation of the left thumb 2 days ago which was closed in the OR here. He states that he has had some pain but doing okay, taking ibuprofen and [place] that he was prescribed every 4-6 hours. He was given 10 when discharged on Saturday and ran out of those this morning. He called the surgeon's office but does not have follow-up scheduled until . He has having increasing throbbing and pressure pain in the thumb, and does not know whether this is because he is out of pain medication or because there is some other problem. He states at times the pain she was into the radial side of his wrist. He denies any drainage from the wound. He denies any fever, states he is otherwise feeling fine Related Data Previous Rx's Medication Instructions Recorded cephalexin [Keflex] 500 mg PO QID #28 cap 08/23/18 hydrocodone-acetaminophen [[place]] 1 tab PO Q4HR PRN #10 tab 08/23/18 hydrocodone-acetaminophen [[place]] 1 tab PO Q4-6H PRN #14 tab 08/26/18 Allergies Allergy/AdvReac Type Severity Reaction Status Date / Time No Known Drug Allergies Allergy Verified 08/26/18 16:41 Review of Systems <Juany Manning PA-C - Last Filed: 08/26/18 20:12> Review of Systems ROS Unobtainable: All systems reviewed & are unremarkable except as noted in HPI and below PFSH <Juany Manning PA-C - Last Filed: 08/26/18 20:12> Surgical History (Updated 08/26/18 @ 17:21 by Juany Manning PA-C) Amputation of thumb, left (Acute) Social History household members: none Smoking Status: Current every day smoker alcohol intake: current Social History household members: none Smoking Status: Current every day smoker alcohol intake: current Exam <Juany Manning PA-C - Last Filed: 08/26/18 20:12> Narrative Exam Narrative: GENERAL APPEARANCE: Patient sitting comfortably, in no distress. LUNGS: Clear to auscultation bilaterally. HEART: Rate and rhythm regular without murmur, normal S1 and S2, no S3 or S4. DERMATOLOGIC: Left thumb stump mildly erythematous, uniform, not extending proximal to the MCP joint, no surgical wound drainage MUSCULOSKELETAL: Left thumb no effusion the MCP joint, full aROM at MCP, moderate tenderness. No tenderness over the wrist where there is also full range of motion NEUROVASCULAR: Remainder of let some and left hand fingers sensation is grossly intact, warm and pink Initial Vital Signs Initial Vital Signs: Vital Signs Temperature 98.7 F 08/26/18 16:24 Pulse Rate 102 H 08/26/18 16:24 Respiratory Rate 08/26/18 16:24 Blood Pressure 151/87 H 08/26/18 16:24 Pulse Oximetry 99 08/26/18 16:24 <Mike Viera DO - Last Filed: 08/27/18 08:39> Initial Vital Signs Initial Vital Signs: Vital Signs Temperature 98.7 F 08/26/18 16:24 Pulse Rate 102 H 08/26/18 16:24 Respiratory Rate 08/26/18 16:24 Blood Pressure 151/87 H 08/26/18 16:24 Pulse Oximetry 99 08/26/18 16:24 Course <Juany Manning PA-C - Last Filed: 08/26/18 20:12> Additional Information: The patient reports improvement in pain after dressing removed, edema somewhat improved as well. He was given a single dose of [place]. No evidence of infection at this point. A looser, bulky dressing was placed, and a prescription for [place] to last until his appointment was given. Advised to call surgeon's office sooner if pain acutely worsens again or new problems anna ch as signs of infection, which we reviewed. He is agreeable Orders Ordered: Discontinued Medications Hydrocodone Bitart/Acetaminophen ([place] 5/325) 1 tab PO NOW ONE Stop: 08/26/18 17:15 Last Admin: 08/26/18 17:23 Dose: 1 tab Vital Signs - 8 hr 08/26/18 16:24 08/26/18 18:13 Temperature 98.7 F Pulse Rate 102 H 75 Respiratory Rate 19 16 Blood Pressure 151/87 H Blood Pressure [Right Arm] 136/79 Pulse Oximetry 99 94 <Mike Viera DO - Last Filed: 08/27/18 08:39> Orders Ordered: Discontinued Medications Hydrocodone Bitart/Acetaminophen ([place] 5/325) 1 tab PO NOW ONE Stop: 08/26/18 17:15 Last Admin: 08/26/18 17:23 Dose: 1 tab Vital Signs - 8 hr 08/26/18 16:24 08/26/18 18:13 Temperature 98.7 F Pulse Rate 102 H 75 Respiratory Rate 19 16 Blood Pressure 151/87 H Blood Pressure [Right Arm] 136/79 Pulse Oximetry 99 94 Discharge Plan Departure Patient Disposition: Home Clinical Impression: 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 We have placed a slightly looser dressing today. Since you are feeling better, you can continue to monitor at home as there is no sign of postoperative infection today. If this starts to feel worse again or other new symptoms, i.e. signs of infection, please call the surgeon's office right away to request to be seen, and of course you may return to the ED as needed. Prescriptions: New hydrocodone-acetaminophen [[place]] 5-325 mg tablet 1 tab PO Q4-6H PRN (Reason: acute postoperative pain/amputation) Qty: 14 RF: 0 No Action hydrocodone-acetaminophen [[place]] 5-325 mg tablet 1 tab PO Q4HR PRN (Reason: pain) Qty: 10 RF: 0 cephalexin [Keflex] 500 mg capsule 500 mg PO QID Qty: 28 RF: 0 Referrals: Lake Weber MD [Physician] - <Mike Viera DO - Last Filed: 08/27/18 08:39> Cosign ED Attending Cosignature Attestation: I was immediately available in the department for consultation. Documentation has been reviewed. I agree with assessment and plan.
--- NOTE | 2018-08-26 17:13 | PC.NURSE ---
left thumb , dressing removed, left thumb with swelling, no redness noted. +distal cms intact. provider polo at bs.
[2018-08-26] MEDS: HYDROCODONE/ACET 5/325 TABLET 1 TAB PO (17:23)
[2018-08-26 18:13] VITALS: BP 136/79; PULSE 75; RESP 16; O2SAT 94
--- NOTE | 2018-08-26 18:13 | PC.NURSE ---
left arm sling reapplied. tolerated well.
== END 2018-08-26 18:21 | disposition home or self-care (01) ==
PROVIDERS: Emergency Provider Internal Medicine
DX: S68.52 Partial traumatic transphalangeal amputation of thumb (principal); W31.2XXS Contact with powered woodworking and forming machines, sequela
CPT/HCPCS: 99282; 99283

== ENCOUNTER → 2019-09-28 10:33 | Outpatient (CLI) | payer OTHER, MEDICAID, SELFPAY ==
[2018-08-23 21:07] VITALS: BMI 23.6
--- NOTE | 2019-09-28 10:34 | DI.RAD.S_ITS ---
PROCEDURE: XR WRIST RT MIN 3V INDICATIONS: R wrist pain post FOOSH TECHNIQUE: 4 views of the wrist were acquired. COMPARISON: None. FINDINGS: Bones: No fractures or dislocations. No suspicious bony lesions. Mild degenerative changes involving the basal joint of the thumb are present. Soft tissues: No suspicious soft tissue calcifications. IMPRESSION: No acute fractures. Dictated by: Nikos Powell M.D. on 09/28/2019 at 9:54 Approved by: Nikos Powell M.D. on 09/28/2019 at 9:55
== END ==
PROVIDERS: Referring Provider Nurse Practitioner; Visit Provider Nurse Practitioner
DX: M25.531 Pain in right wrist (principal)
CPT/HCPCS: 73110

== ENCOUNTER → 2020-04-08 11:48 | Outpatient (CLI) | payer OTHER, MEDICAID, SELFPAY ==
[2018-08-23 21:07] VITALS: BMI 23.6
== END ==
PROVIDERS: PCP Family Medicine; Visit Provider Physician Assistant
DX: T14.8XXA Other injury of unspecified body region, initial encounter (principal)
CPT/HCPCS: 87070; 87147; 87205

== ENCOUNTER → 2020-07-19 09:50 | Outpatient (CLI) | payer OTHER, MEDICAID, SELFPAY ==
[2018-08-23 21:07] VITALS: BMI 23.6
[2020-07-19 10:23] LABS: COVID19 -Nasal RAPID Negative (Negative)
== END ==
PROVIDERS: PCP Family Medicine; Visit Provider Specialist
DX: Z20.822 Contact with and (suspected) exposure to COVID-19 (principal)
CPT/HCPCS: 87635; C9803

== ENCOUNTER 2020-07-20 11:25 | Day surgery (SDC) | payer OTHER, MEDICAID, SELFPAY ==
[2018-08-23 21:07] VITALS: BMI 23.6
[2020-07-20] VITALS (9 sets, daily range): BP systolic 130–155; BP diastolic 71–90; PULSE 68–98; RESP 12–19; TEMP 36.3–36.9; O2SAT 95–100; BMI 23.5
[2020-07-20] MEDS: LACTATED RINGERS 1,000 ML 100 ML IV (12:12)
--- NOTE | 2020-07-20 12:31 | PM.PREOP ---
Pre-operative Note COVID-19 COVID-19 status: Negative Result date/Date tested (Pos, Neg/Pending): 07/19/20 Interval Note History & Physical reviewed/Exam performed by Physician: Yes Changes to H&P: No
[2020-07-20] MEDS: CEFAZOLIN 2 GM/100 ML FROZ.PIGGY IV (12:37)
--- NOTE | 2020-07-20 12:51 | SUR.OPER ---
Supine on padded OR bed, head on pillow, arms secured on padded arm boards at <90 degrees abduction, legs uncrossed, safety belt at thigh, tape over blanket over lower legs.
[2020-07-20] MEDS: BUPIVACAINE 0.5% (PF) VIAL 30 ML INJ (12:59)
--- NOTE | 2020-07-20 14:23 | P.OP_ITS ---
Operative Date/Time/Diagnoses Date of procedure: 07/20/20 Time of procedure: 14:24 Pre-op diagnosis: Left inguinal hernia reducible Post-op diagnosis: same (Direct hernia) Procedure & Clinicians Procedure: Repair with plug and patch technique Same procedure as scheduled: Yes Indications: Symptomatic left inguinal hernia Surgeon: Saw Pittman Click Yes if Unassisted: Yes Anesthesia Type: General Operative Notes Findings: Large direct hernia. Closure Type: primary Specimen(s): none sent Prosthetic devices, grafts, tissues, transplants, or devices: Small plug and patch Estimated Blood Loss (mL): 5 Blood products transfused: none Procedure in detail: The patient was placed supine on the operating room table and underwent general LMA anesthesia. He was prepped and draped in the usual fashion. A transverse incision was made overlying the left internal ring and carried down to the level of the external oblique. The external oblique was opened parallel with its fibers through the external ring. The cord structures were elevated. The cremaster was opened proximally and search made for an indirect sac. After careful dissection of a very thin cord I could not identify anything that resembled an indirect hernia. There was a small amount of fat within the cord and I removed a portion of it.. The floor was examined and was found to be markedly attenuated. The tissues however medial and lateral fairly intact. I opened the floor and placed the small plug in the defect. I tacked it into place with interrupted Ethibond sutures. I then closed the floor over it as well as sutures tracking all the way down to the pubic tubercle to completely resolve any weakness of the floor and to reapproximate the internal ring a little more snugly. This was done by placing sutures between the trans versalis arch medially and the ileopubic tract in edge of inguinal ligament laterally. Once these were tied I made a small relaxing incision in the posterior lamella the anterior rectus sheath. . A patch was placed across the floor and tacked at the pubic tubercle, the posterior lamella of the anterior rectus sheath, the ilioinguinal ligament, and superior lateral to the cord. The opening was modified as necessary to prevent tight constriction of the cord. Sutures of 0 Tycron were used to secure the mesh. There was a nerve which would have been directly exposed to the mesh which I chose to transect and remove in breathe a proximal cut and in muscle. The external oblique was closed with a running 3 0 Polysorb. The subcu was closed with interrupted 3 0 Polysorb. The skin was closed with a running 4 0 Polysorb subcuticular stitch and Steri-Strips. Dressing was applied, the patient was awakened, and the patient was taken to the recovery area in good condition. Complications: none Post-operative Condition: stable Disposition: PACU
[2020-07-20] MEDS: OXYCODONE/ACETAMINOPHEN 5/325 TABLET 1 TAB PO ×2 (14:32→14:46)
--- NOTE | 2020-07-20 15:18 | SUR.PHASEII ---
Addendum entered by Juany De La Rosa R.N. 07/20/20 15:21: Incision CDI - no swelling at site Original Note: 1289 Patient discharged via dual care with Leigh Ann Salazar, RN and Errol De La Rosa RN. Had discussion in PACU with pt and RN that he needs to have someone with him, told him that we prefer 24 hour coverage for patient safety. Stated that he had his dog and that was adequate. Agreed to have a friend who is a caregiver with him. Reminded him of this upon discharge. Picked up by his mother. Ambulated to the bathroom - stable on feet. Questions answered. Ice pack home with him.
== END 2020-07-20 15:15 | disposition home or self-care (01) ==
PROVIDERS: PCP Family Medicine; Referring Provider Family Medicine; Visit Provider Specialist
PROC: (CPT 49505; principal; 2020-07-20 12:45)
DX: K40.90 Unilateral inguinal hernia, without obstruction or gangrene, not specified as recurrent (principal); F17.210 Nicotine dependence, cigarettes, uncomplicated
CPT/HCPCS: 49505; 82962; C1781; J0690; J1100; J2250; J2405; J2704; J3010

== ENCOUNTER → 2021-02-06 15:55 | Outpatient (CLI) | payer OTHER, MEDICAID, SELFPAY ==
[2018-08-23 21:07] VITALS: BMI 23.6
[2021-02-06 16:26] LABS: Add Manual Diff / Slide Review NO; Basophils Absolute Auto 0 /uL (0-100); Basophils Percent Auto 0.4 % (0-2); Eosinophils Absolute Auto 0 /uL (0-450); Eosinophils Percent Auto 0.4 % (2-4); Hematocrit 45.5 % (41-53); Lymphocytes Absolute Auto 1500 /uL (1100-4500); Lymphocytes Percent Auto 14.1 % (25-40); Mean Corpuscular HGB Conc 35.1 % (30-36); Mean Corpuscular Hemoglobin 35.1 PG (26-34); Mean Corpuscular Volume 99.9 fL (80-100); Monocytes Absolute Auto 600 /uL (0-900); Monocytes Percent Auto 5.2 % (3-14); Neutrophils Absolute Auto 8700 /uL (1500-7000); Neutrophils Percent Auto 79.9 % (50-75); Platelet Count 234 X10^3/uL (150-400); Red Blood Cell Count 4.55 X10^6/uL (4.5-5.9); Red Cell Distribution Width 12.4 % (11.6-14.8); White Blood Cell Count 10.9 X10^3/uL (4.5-11.0)
[2021-02-06 17:06] LABS: Alanine Aminotransferase 15 IU/L (<50); Albumin 4.8 g/dL (3.5-5.0); Albumin Globulin Ratio 1.7 (1.0-2.8); Alkaline Phosphatase 61 U/L (38-126); Aspartate Aminotransferase 25 IU/L (17-59); BUN Creatinine Ratio 11.5 (6-22); Bilirubin Total 0.7 mg/dL (0.2-1.3); Blood Urea Nitrogen 11 mg/dL (9-20); Calcium 9.6 mg/dL (8.4-10.2); Carbon Dioxide 26 mmol/L (22-32); Chloride 105 mmol/L (98-107); Estimated Glomerular Filt Rate > 60.0 mL/min (>60); Globulin 2.9 g/dL (1.7-4.1); Glucose 96 mg/dL (70-100); HEMOLYSIS < 15 (0-50); Sodium 142 mmol/L (137-145); Total Protein 7.7 g/dL (6.3-8.2)
[2021-02-06 17:35] LABS: TSH w/ Reflex to FT4 1.87 uIU/mL (0.47-4.68)
== END ==
PROVIDERS: PCP Family Medicine; Referring Provider Family Medicine; Visit Provider Family Medicine
DX: F41.9 Anxiety disorder, unspecified (principal); L30.9 Dermatitis, unspecified
CPT/HCPCS: 36415; 80053; 84443; 85025

== ENCOUNTER 2023-12-05 17:16 | Emergency (ER) | payer OTHER, MEDICAID, SELFPAY ==
[2018-08-23 21:07] VITALS: BMI 23.6
[2023-12-05 18:32] VITALS: BP 172/89; PULSE 77; RESP 16; TEMP 36.4; O2SAT 98; BMI 23.5
--- NOTE | 2023-12-05 18:40 | DI.RAD.S_ITS ---
PROCEDURE: XR HUMERUS LT 2V INDICATIONS: arm pain TECHNIQUE: 2 views of the humerus were acquired. COMPARISON: None. FINDINGS: Bones: No fractures or dislocations. No suspicious bony lesions. Soft tissues: No suspicious soft tissue calcifications. IMPRESSION: No acute osseous abnormality. If pain persists with conservative management, consider repeat x-ray in 10-14 days or cross-sectional imaging. Dictated by: Madhav Salas M.D. on 12/05/2023 at 19:19 Approved by: Madhav Salas M.D. on 12/05/2023 at 19:19
--- NOTE | 2023-12-05 18:40 | DI.RAD.S_ITS ---
PROCEDURE: XR SHOULDER LT MIN 2V INDICATIONS: left arm pain TECHNIQUE: 3 views of the shoulder were acquired. COMPARISON: [facility], CR, XR SHOULDER LT MIN 2V, 06/05/2018, 17:29. FINDINGS: Bones: No fractures or dislocations. No suspicious bony lesions. Visualized ribs appear intact. Soft tissues: No suspicious soft tissue calcifications. IMPRESSION: No acute osseous abnormality. If pain persists with conservative management, consider repeat x-ray in 10-14 days or cross-sectional imaging. Dictated by: Madhav Salas M.D. on 12/05/2023 at 19:19 Approved by: Madhav Salas M.D. on 12/05/2023 at 19:19
== END 2023-12-05 19:35 | disposition left against medical advice (07) ==
PROVIDERS: Emergency Provider Emergency Medicine; PCP Family Medicine
DX: M25.512 Pain in left shoulder (principal); M79.602 Pain in left arm
CPT/HCPCS: 73030; 73060; 99281

== ENCOUNTER 2023-12-06 17:43 | Emergency (ER) | payer OTHER, MEDICAID, SELFPAY ==
[2018-08-23 21:07] VITALS: BMI 23.6
[2023-12-06 17:47] VITALS: BP 136/86; PULSE 79; RESP 18; TEMP 36.4; O2SAT 98; BMI 23.5
--- NOTE | 2023-12-06 18:01 | PC.NURSE ---
pain palpated in L trap and medial shoulder blade. Large tender knot felt. posture is khyphotic. Pt in severe pain with light touch to the area. Pt states he was shadowboxing with a friend last week and it flared up. Adequate ROM with L arm. states he is having some parasthesia in L upper arm down to fingers. 2+ pulse. Using ibuprofen.
--- NOTE | 2023-12-06 18:22 | ED_ITS ---
HPI - Extremity Injury (Upper) <Jade Bentley PA-C - Last Filed: 12/07/23 10:53> General Chief Complaint: Extremity Injury, Upper Stated Complaint: shoulder pain Time Seen by Provider: 12/06/23 18:21 Source: patient History of Present Illness HPI narrative: Patient is a 48-year-old male presents to the emergency room department with left shoulder pain, actually latissimus dorsi spasm, Patient seen [facility] yesterday, had x-rays done negative for any acute findings. Left Against Medical Advice, patient had to catch the [place], who was unable to wait because the last very left 830 and he was going to miss the [place] he sat and waited in the emergency room department.. Now here in the emergency department complaining of continued left shoulder pain, severe spasm to the left latissimus dorsi all lateral paraspinal nature. This appears to be an acute on chronic shoulder issue. Patient smokes daily, cannabis occasionally, denies any excessive alcohol usage, denies any recreational drug use. States onset of this discomfort and pain when he was shadow boxing with a friend of his. He denies recent injury trauma fall assault. Position of comfort, hunched over and kind of looking to the right. And trying to remain still. Related Data Previous Rx's Medication Instructions Recorded ibuprofen 600 mg tablet (IBU) 600 mg PO Q6H PRN painful 07/20/20 procedure #20 tabs buspirone 10 mg tablet 10 mg PO BID #60 tabs 02/06/21 fluoxetine 10 mg capsule 10 mg PO DAILY #30 caps 02/06/21 mupirocin 2 % topical ointment 1 applic topical BID #30 grams 02/07/21 cyclobenzaprine 10 mg tablet 10 mg PO TID PRN muscle spasm #10 12/06/23 tabs Allergies Allergy/AdvReac Type Severity Reaction Status Date / Time No Known Drug Allergies Allergy Verified 02/06/21 15:32 Review of Systems <Jade Bentley PA-C - Last Filed: 12/07/23 10:53> Review of Systems Narrative: Negative except as above Musculoskeletal Comments: Severe acute latissimus dorsi left-sided muscle spasm. Patient History <Jade Bentley PA-C - Last Filed: 12/07/23 10:53> Medical History Anxiety Broken ribs Chronic dermatitis Dog bite Right lateral epicondylitis No active medical problems Surgical History Amputation of thumb, left Social History marital status: unknown household members: none occupational status: employed Smoking Status: Current every day smoker alcohol intake: never substance use type: does not use Smoking Status: Current every day smoker alcohol intake frequency: holidays/special occasions only Substance Use Type: marijuana Exam <Jade Bentley PA-C - Last Filed: 12/07/23 10:53> Initial Vital Signs Initial Vital Signs: Vital Signs Temperature 97.6 F 12/06/23 17:47 Pulse Rate 79 12/06/23 17:47 Respiratory Rate 18 12/06/23 17:47 Blood Pressure 136/86 12/06/23 17:47 Pulse Oximetry 98 12/06/23 17:47 Oxygen Delivery Method Room Air 12/06/23 17:47 Reviewed Const General: cooperative, acute distress, disheveled and other (Odd demeanor) Nutritional Appearance: average body habitus and well nourished Eyes General: Yes appearance normal, both eyes and all related structures Pupils: PERRL EOM: EOM intact bilaterally Neck Other: Range of motion seems to be limited due to any type of movement of the neck seems to precipitate discomfort and pain in the left latissimus dorsi in the left sternocleidomastoid muscle. There is pain with palpation down along the lateral aspect of the sternocleidomastoid into the latissimus dorsi. No midline tenderness. Back/Spine/Pelvis Other: Cervical spine no midline tenderness. Position of comfort is kind of with the neck turned to the right side. It seems to alleviate the discomfort and give him some minor relief. There seems to be some tenderness and tenseness along the lateral aspect of the sternocleidomastoid muscle and then trapezius and rhomboid insertion point along the aponeurosis of the left side of his scalp. And then long the latissimus dorsi down into the lower thoracic paraspinal area has lot of tenderness with palpation, and spasm. He has a lot of tenderness and palpation over the trapezius, and deep into the rhomboid on the left side with palpation. With a large amount of muscle spasm. That is limiting the range of motion of his left shoulder in his ability to turn his neck. He does not have any thoracic midline tenderness or lumbar tenderness. Skin Other: Warm pink and dry. Neuro General: patient alert, patient awake, patient oriented x3 and oriented Cranial Nerves: CN's II-XI intact bilaterally Cognition: normal cognition Speech: other (Very pressured. Becomes agitated extremely easily.) Gait: normal gait Extrem Other: Range of motion of his upper extremities lower extremities is not impaired. Pulses are present. Strength is intact. Cap refill is preserved. Psych Appearance: disheveled Mental Status: mental status grossly normal Speech and Movement: agitated and other Other: Patient is a very strange affect about him in a mood about him he appears uncom fortable but he has just a very agitated way about him, he becomes very highly agitated at the time of discharge. And angry. He has demanding an MRI. With no red flag symptoms. He is difficult to discharge, becomes very verbose, very agitated. He is angry that prescription has been sent to the pharmacy for him. I have advised him to return back to [place] to pick up man his prescriptions in the morning. I have advised him he needs to establish care with a primary care doctor. I have advised him to purchase [id number] topical preparations. He still is very very agitated and angry prior to discharge. No labs were drawn unknown if there could be some underlying intoxication of polysubstance abuse. <Toño Penny DO - Last Filed: 12/07/23 18:03> Initial Vital Signs Initial Vital Signs: Vital Signs Temperature 97.6 F 12/06/23 17:47 Pulse Rate 79 12/06/23 17:47 Respiratory Rate 18 12/06/23 17:47 Blood Pressure 136/86 12/06/23 17:47 Pulse Oximetry 98 12/06/23 17:47 Oxygen Delivery Method Room Air 12/06/23 17:47 Scores <Jade Bentley PA-C - Last Filed: 12/07/23 10:53> GCS Citation: 15 Course <Jade Bentley PA-C - Last Filed: 12/07/23 10:53> Orders Ordered: Discontinued Medications Cyclobenzaprine HCl (Cyclobenzaprine 10 Mg Tablet) 10 mg PO NOW ONE Stop: 12/06/23 18:35 Last Admin: 12/06/23 18:44 Dose: 10 mg Documented By: SPF Ketorolac Tromethamine (Ketorolac 30 Mg/Ml Vial) 30 mg IM NOW ONE Stop: 12/06/23 18:35 Last Admin: 12/06/23 18:44 Dose: 30 mg Documented By: SPF Vital Signs Vital signs: Vital Signs - 8 hr 12/06/23 17:47 Temperature 97.6 F Pulse Rate 79 Respiratory Rate 18 Blood Pressure 136/86 Pulse Oximetry 98 Oxygen Delivery Method Room Air <Toño Penny DO - Last Filed: 12/07/23 18:03> Orders Ordered: Discontinued Medications Cyclobenzaprine HCl (Cyclobenzaprine 10 Mg Tablet) 10 mg PO NOW ONE Stop: 12/06/23 18:35 Last Admin: 12/06/23 18:44 Dose: 10 mg Documented By: SPF Ketorolac Tromethamine (Ketorolac 30 Mg/Ml Vial) 30 mg IM NOW ONE Stop: 12/06/23 18:35 Last Admin: 12/06/23 18:44 Dose: 30 mg Documented By: SPF Vital Signs Vital signs: Vital Signs - 8 hr 12/06/23 17:47 Temperature 97.6 F Pulse Rate 79 Respiratory Rate 18 Blood Pressure 136/86 Pulse Oximetry 98 Oxygen Delivery Method Room Air MDM - Extremity Injury (Upper) <Jade Bentley PA-C - Last Filed: 12/07/23 10:53> MDM Narrative Medical decision making narrative: 48-year-old male that presents to the emergency department with left-sided sternocleidomastoid/trapezius/rhomboid/latissimus dorsi muscle spasm and discomfort. It has been ongoing for about a week. Was recently seen at [facility] as of 11/28 09/01, had x-rays of his left shoulder which were negative for any acute pathology. Left prior to being evaluated because he needed a catch the [place] back to [facility] of the [facility]. Now presents to the emergency room department here in [place] with continued complaints of muscle spasm discomfort and pain. Exam does not show any red flag concerns. He has no signs symptoms of neurologic compromise. He has had no recent injury, trauma or fall. He states this all started when he was shadow boxing with a friend of his. It has become exacerbated. Not relieved with Motrin or [id number]-[id number] supportive therapy. Patient given a Toradol shot P.o. Flexeril Patient demanding an MRI explained to the patient that currently at this time there are no red flag symptoms that would cause me to order an MRI currently at this time. I encouraged him to establish care with a primary care doctor I encouraged him to do [id number] supportive therapy with topical, nonsteroidals and a prescription of Flexeril was sent to his pharmacy. Patient became extremely agitated, angry, I sat with him the nurse and we discussed plan patient continued to be upset. Patient eventually was discharged Encouraged him that if he continued to have issues or problems or not improving he was more than welcome to return back to the emergency room department to be evaluated by another provider. Differential diagnosis; musculoskeletal spasm, musculoskeletal strain, with multiple areas on back low suspicion for multilevel neurological spinal canal defect. With no signs or symptoms of any type of upper extremity weakness, numbness or tingling. Supportive therapy ED precautions. Patient discharged. Discharge Plan Departure Patient Disposition: Home Clinical Impression: Muscle spasm of shoulder region Activity Restrictions/Additional Instructions: Ice, heat, topical diclofenac or Voltaren. Please take the medications as prescribed. [id number] ibuprofen as needed. Prescription has been sent to your local pharmacy. Prescriptions: New cyclobenzaprine 10 mg tablet 10 mg PO TID PRN (Reason: muscle spasm) Qty: 10 0RF No Action mupirocin 2 % ointment 1 applic topical BID Qty: 30 1RF fluoxetine 10 mg capsule 10 mg PO DAILY Qty: 30 2RF buspirone 10 mg tablet 10 mg PO BID Qty: 60 2RF ibuprofen [IBU] 600 mg tablet 600 mg PO Q6H PRN (Reason: painful procedure) Qty: 20 0RF Referrals: Ezio Grajeda DO [Primary Care Provider] - Stand Alone Forms: Patient Portal/API ED Sign-out <Toño Penny DO - Last Filed: 12/07/23 18:03> Cosign ED Attending Cosignature Attestation: Dr Penny Co-Sign Statement: I was available for consultation during this patient's emergency department visit. This chart is signed by myself for admini strative purposes only. I did not have direct contact with this patient during this visit. They were seen independently by the [facility].
[2023-12-06] MEDS: CYCLOBENZAPRINE 10 MG TABLET PO (18:44)
[2023-12-06] MEDS: KETOROLAC 30 MG/ML VIAL IM (18:44)
[2023-12-06 19:35] VITALS: BP 148/76; PULSE 69; RESP 20; O2SAT 99
--- NOTE | 2023-12-06 19:37 | PC.NURSE ---
Pt agrivated and requesting MRI. Pt began demanding MRI and saying staff did nothing for him. Pt cursing, stomping his feet around. Provided patient with snacks and water, walked him to the main ER lobby pt cursing. Security notified
== END 2023-12-06 19:37 | disposition home or self-care (01) ==
PROVIDERS: Emergency Provider Physician Assistant; PCP Family Medicine
DX: M62.838 Other muscle spasm (principal)
CPT/HCPCS: 96372; 99283; J1885